=== PATIENT | male | born 1960 | race Caucasian/White ===

== ENCOUNTER 2024-08-20 06:51 | Day surgery (SDC) | payer MEDICARE, SELFPAY ==
--- OUTSIDE RECORDS SUMMARY | 2024-07-31 11:49 | XMS_ITS | Patient Health Record ---
Author Organization [facility] Address [address] [facility] [address] [place] [id number] Care Team Providers Care Solution Lead Name Role Phone Víctor Moreau MD Primary Care Provider Chace Ricks Jr, Pedrito Diaz Reason For Referral No Information Encounters Encounter Location Date Provider Diagnosis [facility] [address] [id number] 02/22/2024 Pedrito Ricks Jr Plan Of Treatment No Information Insurance Providers Payer Name Payer Address Payer Phone Subscriber Number Group Number Insured Name Patient Relationship to Insured Coverage Start Date Coverage End Date [employer] [address] [place] [phone] [id number] MOISES AKHTAR Self - patient is the insured
[2024-08-15 07:46] VITALS: BMI 38.4
--- NOTE | 2024-08-15 10:40 | HO.ANESPROP2 ---
Documented by User: Desirae Ackerman NP 08/16/24 10:33 HPI - Anesthesia Eval Consult details Narrative: 64yo M for Right Cataract Extraction IOL Insertion No previous cataract on record Pacer in situ (SSS, CHB) - 04/2024 interrogation on chart - generator changed 04/2024 Xarelto for afib CAD s/p stent PMFSH Past Medical History Medical History (Updated 08/15/24 @ 07:09 by Rocío Molina RN) Sleep apnea Allergic rhinitis Male erectile disorder Macular degeneration Knee pain HTN (hypertension) Hyperlipidemia Diabetes Cough Complete heart block Atypical chest pain Anxiety Acute sinusitis Acute pharyngitis Acute maxillary sinusitis Thoracic aortic aneurysm Paroxysmal atrial fibrillation Sick sinus syndrome Hx of cardiac pacemaker CAD (coronary artery disease) Surgical History Surgical History (Updated 08/15/24 @ 07:09 by Rocío Molina RN) Hx of hemorrhoidectomy History of coronary artery stent placement Social History Social History Are you a primary animal care attendant to a significant other at home: No Do you presently have visiting nurse or other home services: No Patient Tobacco Use Status: Never used Tobacco Use of substances other than those prescribed or required for medical reasons: No Have you been hit, kicked, punched, or otherwise hurt by someone within the past year? If so, by whom?: No Are you DNR?: No Advance Directives: No Advance Directives Information Provided: Yes Advance Directives on File: No Meds Allergies Allergy/AdvReac Type Severity Reaction Status Date / Time Penicillins Allergy Unknown Verified 08/15/24 07:10 Home Medications ?Medication ?Instructions ?Recorded ?Confirmed ?Last Taken ?Type albuterol sulfate 90 mcg/actuation 2 puff inhalation Q6H PRN 08/15/24 08/15/24 Unknown History aerosol inhaler Shortness Of Breath Or Wheezing aspirin 81 mg tablet,delayed 81 mg PO DAILY 08/15/24 08/15/24 Unknown History release atorvastatin 80 mg tablet 80 mg PO BEDTIME 08/15/24 08/15/24 Unknown History brimonidine 0.2 % eye drops 1 drp ophthalmic (eye) BID 08/15/24 08/15/24 Unknown History cyclobenzaprine 5 mg tablet 5 mg PO TID PRN Muscle Spasm 08/15/24 08/15/24 Unknown History dronedarone 400 mg tablet (Multaq) 400 mg PO BID 08/15/24 08/15/24 Unknown History fluticasone 250 mcg-salmeterol 50 1 ea inhalation BID 08/15/24 08/15/24 Unknown History mcg/dose blistr powdr for inhalation (Wixela Inhub) fluticasone propionate 50 2 spray intranasal DAILY 08/15/24 08/15/24 Unknown History mcg/actuation nasal spray,suspension furosemide 20 mg tablet 20 mg PO DAILY PRN Weight Gain 08/15/24 08/15/24 Unknown History lisinopril 5 mg tablet 5 mg PO QAM 08/15/24 08/15/24 Unknown History metformin 500 mg tablet,extended 1,000 mg PO QPM 08/15/24 08/15/24 Unknown History release 24 hr metformin 500 mg tablet,extended 500 mg PO QAM 08/15/24 08/15/24 Unknown History release 24 hr methocarbamol 500 mg tablet 500 mg PO BEDTIME PRN muscle spasm 08/15/24 08/15/24 Unknown History multivitamin 1 tab PO DAILY 08/15/24 08/15/24 Unknown History pantoprazole 40 mg tablet,delayed 40 mg PO DAILY 08/15/24 08/15/24 Unknown History release rivaroxaban 20 mg tablet (Xarelto) 20 mg PO DAILY 08/15/24 08/15/24 Unknown History timolol maleate 0.5 % eye drops 1 drp ophthalmic-Right QAM 08/15/24 08/15/24 Unknown History tiotropium bromide 2.5 2 puff inhalation DAILY 08/15/24 08/15/24 Unknown History mcg/actuation mist for inhalation (Spiriva Respimat) Exam Height,Weight and Vital Signs: Height 5 ft 9 in Weight 117.9 kg Narrative Narrative: EKG 04/2024 Vpaced rhythm ECHO 03/2024 Assessment and Plan Assessment Anesthesia Assessment: Chart Reviewed Documented by User: Tammy Morin MD 08/20/24 07:18 [facility] Past Medical History Medical History (Updated 08/15/24 @ 07:09 by Rocío Molina RN) Sleep apnea Allergic rhinitis Male erectile disorder Macular degeneration Knee pain HTN (hypertension) Hyperlipidemia Diabetes Cough Complete heart block Atypical chest pain Anxiety Acute sinusitis Acute pharyngitis Acute maxillary sinusitis Thoracic aortic aneurysm Paroxysmal atrial fibrillation Sick sinus syndrome Hx of cardiac pacemaker CAD (coronary artery disease) Family History Family history of problems with anesthesia: No Surgical History Surgical History (Updated 08/15/24 @ 07:09 by Rocío Molina RN) Hx of hemorrhoidectomy History of coronary artery stent placement History of Problems with Anesthesia: No Social History Social History Are you a primary animal care attendant to a significant other at home: No Do you presently have visiting nurse or other home services: No Patient Tobacco Use Status: Never used Tobacco Use of substances other than those prescribed or required for medical reasons: No Have you been hit, kicked, punched, or otherwise hurt by someone within the past year? If so, by whom?: No Are you DNR?: No Advance Directives: No Advance Directives Information Provided: Yes Advance Directives on File: No Meds Allergies Allergy/AdvReac Type Severity Reaction Status Date / Time Penicillins Allergy Unknown Verified 08/15/24 07:10 Home Medications ?Medication ?Instructions ?Recorded ?Confirmed ?Last Taken ?Type albuterol sulfate 90 mcg/actuation 2 puff inhalation Q6H PRN 08/15/24 08/15/24 Unknown History aerosol inhaler Shortness Of Breath Or Wheezing aspirin 81 mg tablet,delayed 81 mg PO DAILY 08/15/24 08/15/24 Unknown History release atorvastatin 80 mg tablet 80 mg PO BEDTIME 08/15/24 08/15/24 Unknown History brimonidine 0.2 % eye drops 1 drp ophthalmic (eye) BID 08/15/24 08/15/24 Unknown History cyclobenzaprine 5 mg tablet 5 mg PO TID PRN Muscle Spasm 08/15/24 08/15/24 Unknown History dronedarone 400 mg tablet (Multaq) 400 mg PO BID 08/15/24 08/15/24 Unknown History fluticasone 250 mcg-salmeterol 50 1 ea inhalation BID 08/15/24 08/15/24 Unknown History mcg/dose blistr powdr for inhalation ([place] Inhub) fluticasone propionate 50 2 spray intranasal DAILY 08/15/24 08/15/24 Unknown History mcg/actuation nasal spray,suspension furosemide 20 mg tablet 20 mg PO DAILY PRN Weight Gain 08/15/24 08/15/24 Unknown History lisinopril 5 mg tablet 5 mg PO QAM 08/15/24 08/15/24 Unknown History metformin 500 mg tablet,extended 1,000 mg PO QPM 08/15/24 08/15/24 Unknown History release 24 hr metformin 500 mg tablet,extended 500 mg PO QAM 08/15/24 08/15/24 Unknown History release 24 hr methocarbamol 500 mg tablet 500 mg PO BEDTIME PRN muscle spasm 08/15/24 08/15/24 Unknown History multivitamin 1 tab PO DAILY 08/15/24 08/15/24 Unknown History pantoprazole 40 mg tablet,delayed 40 mg PO DAILY 08/15/24 08/15/24 Unknown History release rivaroxaban 20 mg tablet (Xarelto) 20 mg PO DAILY 08/15/24 08/15/24 Unknown History timolol maleate 0.5 % eye drops 1 drp ophthalmic-Right QAM 08/15/24 08/15/24 Unknown History tiotropium bromide 2.5 2 puff inhalation DAILY 08/15/24 08/15/24 Unknown History mcg/actuation mist for inhalation (Spiriva Respimat) Exam Airway Mallampati Class: II TM Dist: >3cm Neck ROM: Full Heart: paced Lungs: cta Assessment and Plan Assessment Anesthesia Assessment: Anesthesia Plan Discussed Final Anesthetic Review Family History of Problems with Anesthesia: No History of Problems with Anesthesia: No NPO: Yes ASA Class: III Final Preanesthetic Review: No Changes in Pt Med Stat, Meds/Allgs Chart Reviewed and Consent Obtained/Reviewed Patient Risk: Low Procedure Risk: Low Anesthetic Plan Anesthetic Plan: MAC: Disposition: Standard PACU
[2024-08-20 07:13] VITALS: BP 134/89; PULSE 84; RESP 16; TEMP 36.2; O2SAT 95
[2024-08-20] MEDS: Tetracaine HCl/PF 0.5% Oph Sol 4 ML DROPS 1 DROP EYE-RIGHT (07:23)
[2024-08-20] MEDS: Cyclopentolate 1 % Ophth Sol 2 ML DRPBTL 1 DROP EYE-RIGHT ×3 (07:24→07:36)
[2024-08-20] MEDS: Tropicamide 1 % Ophth Sol 3 ML BTL 1 DROP EYE-RIGHT ×3 (07:25→07:37)
[2024-08-20] MEDS: Ketorolac Tromethamine 0.5% Op 5 ML DROPS 1 DROP EYE-RIGHT ×3 (07:27→07:38)
[2024-08-20] MEDS: Phenylephrine HCL 2.5% Oph SoL 2 ML BOTTLE 1 DROP EYE-RIGHT ×3 (07:28→07:39)
[2024-08-20] MEDS: Lactated Ringers 500 ML 50 ML IV (07:35)
[2024-08-20 07:37] LABS: Glucose, Whole Blood 172 mg/dL (60-115)
--- NOTE | 2024-08-20 08:14 | MHC.SHP ---
Pre-Procedural Eval Section A - 24 Hr Update-Section A only Date of Service: 08/20/24 The patient is an INPATIENT: No Changes since office visit: No Cold of Flu in the past 2 weeks, No New Medical Problems, No Changes in Medication and No Patient answered all questions The patient has been examined within 24 hours of the surgical procedure. The History & Physical has been completed within 30 days and I have reviewed it.: Yes Section B - Complete if H&P > 30 days Chief Complaint: Age-related nuclear cataract, right eye Allergies: Allergies Allergy/AdvReac Type Severity Reaction Status Date / Time Penicillins Allergy Unknown Verified 08/20/24 07:29 Plan Diagnosis/Plan: Unchanged I have reviewed the history and physical and performed a pertinent physical examination on my patient. No changes have occurred unless specified. Time Spent With Patient Time: Total time managing care of this patient today ____ minutes.
--- NOTE | 2024-08-20 08:15 | P.PCNO_ITS ---
Ophthalmology Procedure Procedure Date of Service: 08/20/24 Ophthalmology Viscoelastic: Healon Duet Dual Pack Pro Ophthalmology Lenses: IOL Acrysof MP - MA60AC (6.5) Procedure Notes: PREOPERATIVE DIAGNOSIS: Decreased visual acuity right eye secondary to cataract POSTOPERATIVE DIAGNOSIS: Same PROCEDURE: Right cataract extraction with intraocular lens insertion SURGEON: Jeff Sanchez M.D. ANESTHESIA: Topical/MAC ESTIMATED BLOOD LOSS: None COMPLICATIONS: None After obtaining informed consent, the patient was brought to the operating room suite and placed in the supine position. After adequate sedation per anesthesia, topical drops of Tetracaine were given to the right eye. The eye was then prepped and draped in the usual sterile fashion. The operating room microscope was then positioned over the operative eye and a lid speculum placed. A paracentesis was created. Viscoelastic was then instilled into the anterior chamber. A three plane incision was then created temporally, utilizing a 2.85 mm keratome. Capsulotomy forceps were then utilized to create a circular tear capsulotomy. Hydrodissection and hydrodelineation were carried out until adequate mobilization of the nucleus occurred. Phacoemulsification was then utilized to remove the dense central nuc leus followed by removal of the cortical material utilizing the automated aspiration irrigation unit. Viscoelastic was instilled into the posterior capsular bag followed by placement of a posterior chamber intraocular lens without difficulty. The residual Viscoelastic was then removed utilizing the automated IA machine. The wound was checked and found to be watertight. The patient tolerated the procedure well and the lid speculum was removed. Intracameral injection of Vigamox 0.1 mL followed by a subtenon injection of Kenalog-40 0.2 mL were administered. The patient will be seen in the a.m.
[2024-08-20 08:37] VITALS: BP 129/70; PULSE 71; RESP 16; TEMP 36.4; O2SAT 97
== END 2024-08-20 08:44 | disposition home or self-care (01) ==
PROVIDERS: PCP Internal Medicine; Visit Provider Ophthalmology
PROC: (CPT 66985; principal; 2024-08-20 09:00)
DX: H25.11 Age-related nuclear cataract, right eye (principal); H54.7 Unspecified visual loss; H40.1121 Primary open-angle glaucoma, left eye, mild stage; H35.3112 Nonexudative age-related macular degeneration, right eye, intermediate dry stage; I10 Essential (primary) hypertension; E11.9 Type 2 diabetes mellitus without complications; I25.10 Atherosclerotic heart disease of native coronary artery without angina pectoris; Z95.5 Presence of coronary angioplasty implant and graft; I48.0 Paroxysmal atrial fibrillation; Z95.0 Presence of cardiac pacemaker; Z79.01 Long term (current) use of anticoagulants; Z79.82 Long term (current) use of aspirin; Z79.84 Long term (current) use of oral hypoglycemic drugs; Z79.899 Other long term (current) drug therapy; Z88.0 Allergy status to penicillin
CPT/HCPCS: 66984; 82947; J2250; J3010; J3301; V2630

== ENCOUNTER 2024-09-03 06:35 | Day surgery (SDC) | payer MEDICARE, SELFPAY ==
[2024-08-15 07:56] VITALS: BMI 37.7
--- NOTE | 2024-08-31 09:56 | HO.ANESPROP2 ---
Documented by User: Desirae Ackerman NP 08/31/24 09:57 HPI - Anesthesia Eval Consult details Narrative: 64yo M for Left Cataract Extraction IOL Insertion Right eye 08/20/24: Fent 50, Midaz 2 Pacer in situ (SSS, CHB) - 04/2024 interrogation on chart - generator changed 04/2024 Xarelto for afib CAD s/p stent PMFSH Past Medical History Medical History Sleep apnea Allergic rhinitis Male erectile disorder Macular degeneration Knee pain HTN (hypertension) Hyperlipidemia Diabetes Cough Complete heart block Atypical chest pain Anxiety Acute sinusitis Acute pharyngitis Acute maxillary sinusitis Thoracic aortic aneurysm Paroxysmal atrial fibrillation Sick sinus syndrome Hx of cardiac pacemaker CAD (coronary artery disease) Family History Family history of problems with anesthesia: No Surgical History Surgical History Hx of hemorrhoidectomy History of coronary artery stent placement History of Problems with Anesthesia: No Social History Social History Are you a primary home health care physician to a significant other at home: No Do you presently have visiting nurse or other home services: No Patient Tobacco Use Status: Never used Tobacco Use of substances other than those prescribed or required for medical reasons: No Have you been hit, kicked, punched, or otherwise hurt by someone within the past year? If so, by whom?: No Are you DNR?: No Advance Directives: No Advance Directives Information Provided: Yes Advance Directives on File: No Meds Allergies Allergy/AdvReac Type Severity Reaction Status Date / Time Penicillins Allergy Unknown Verified 08/20/24 07:29 Active Medications: Current Medications Povidone Iodine (Povidone Iodine 5 % Ophth Soln 30 Ml Bottle) 1 appl EYE-LEFT PREOP PRN PRN Reason: Pre-Op Surgical Implant Prophy Home Medications ?Medication ?Instructions ?Recorded ?Confirmed ?Last Taken ?Type albuterol sulfate 90 mcg/actuation 2 puff inhalation Q6H PRN 08/15/24 08/15/24 Unknown History aerosol inhaler Shortness Of Breath Or Wheezing aspirin 81 mg tablet,delayed 81 mg PO DAILY 07/04/1008/15/24 09/03/24 History release atorvastatin 80 mg tablet 80 mg PO BEDTIME 08/15/24 08/15/24 Unknown History brimonidine 0.2 % eye drops 1 drp ophthalmic (eye) BID 08/15/24 08/15/24 Unknown History cyclobenzaprine 5 mg tablet 5 mg PO TID PRN Muscle Spasm 08/15/24 08/15/24 Unknown History dronedarone 400 mg tablet (Multaq) 400 mg PO BID 08/15/24 08/15/24 08/20/24 05:15 History fluticasone 250 mcg-salmeterol 50 1 ea inhalation BID 08/15/24 08/15/24 Unknown History mcg/dose blistr powdr for inhalation ([place] [employer]) fluticasone propionate 50 2 spray intranasal DAILY 08/15/24 08/15/24 Unknown History mcg/actuation nasal spray,suspension furosemide 20 mg tablet 20 mg PO DAILY PRN Weight Gain 08/15/24 08/15/24 Unknown History lisinopril 5 mg tablet 5 mg PO QAM 08/15/24 08/15/24 Unknown History metformin 500 mg tablet,extended 1,000 mg PO QPM 08/15/24 08/15/24 Unknown History release 24 hr metformin 500 mg tablet,extended 500 mg PO QAM 08/15/24 08/15/24 09/03/24 History release 24 hr methocarbamol 500 mg tablet 500 mg PO BEDTIME PRN muscle spasm 08/15/24 08/15/24 Unknown History multivitamin 1 tab PO DAILY 08/15/24 08/15/24 Unknown History pantoprazole 40 mg tablet,delayed 40 mg PO DAILY 08/15/24 08/15/24 09/03/24 History release rivaroxaban 20 mg tablet (Xarelto) 20 mg PO DAILY 08/15/24 08/15/24 Unknown History timolol maleate 0.5 % eye drops 1 drp ophthalmic-Right QAM 08/15/24 08/15/24 Unknown History tiotropium bromide 2.5 2 puff inhalation DAILY 08/15/24 08/15/24 Unknown History mcg/actuation mist for inhalation (Spiriva Respimat) Exam Height,Weight and Vital Signs: Height 5 ft 9.61 in Weight 117.9 kg Narrative Narrative: EKG 04/2024 Vpaced rhythm ECHO 03/2024 Assessment and Plan Assessment Anesthesia Assessment: Chart Reviewed Final Anesthetic Review Family History of Problems with Anesthesia: No History of Problems with Anesthesia: No Documented by User: Brenda Simms MD 09/03/24 08:25 [facility] Past Medical History Medical History Sleep apnea Allergic rhinitis Male erectile disorder Macular degeneration Knee pain HTN (hypertension) Hyperlipidemia Diabetes Cough Complete heart block Atypical chest pain Anxiety Acute sinusitis Acute pharyngitis Acute maxillary sinusitis Thoracic aortic aneurysm Paroxysmal atrial fibrillation Sick sinus syndrome Hx of cardiac pacemaker CAD (coronary artery disease) Surgical History Surgical History Hx of hemorrhoidectomy History of coronary artery stent placement Social History Social History Are you a primary home health care physician to a significant other at home: No Do you presently have visiting nurse or other home services: No Patient Tobacco Use Status: Never used Tobacco Use of substances other than those prescribed or required for medical reasons: No Have you been hit, kicked, punched, or otherwise hurt by someone within the past year? If so, by whom?: No Are you DNR?: No Advance Directives: No Advance Directives Information Provided: Yes Advance Directives on File: No Meds Allergies Allergy/AdvReac Type Severity Reaction Status Date / Time Penicillins Allergy Unknown Verified 08/20/24 07:29 Home Medications ?Medication ?Instructions ?Recorded ?Confirmed ?Last Taken ?Type albuterol sulfate 90 mcg/actuation 2 puff inhalation Q6H PRN 08/15/24 08/15/24 Unknown History aerosol inhaler Shortness Of Breath Or Wheezing aspirin 81 mg tablet,delayed 81 mg PO DAILY 08/15/24 08/15/24 09/03/24 History release atorvastatin 80 mg tablet 80 mg PO BEDTIME 08/15/24 08/15/24 Unknown History brimonidine 0.2 % eye drops 1 drp ophthalmic (eye) BID 08/15/24 08/15/24 Unknown History cyclobenzaprine 5 mg tablet 5 mg PO TID PRN Muscle Spasm 08/15/24 08/15/24 Unknown History dronedarone 400 mg tablet (Multaq) 400 mg PO BID 08/15/24 08/15/24 08/20/24 05:15 History fluticasone 250 mcg-salmeterol 50 1 ea inhalation BID 08/15/24 08/15/24 Unknown History mcg/dose blistr powdr for inhalation (Wixela Inhub) fluticasone propionate 50 2 spray intranasal DAILY 08/15/24 08/15/24 Unknown History mcg/actuation nasal spray,suspension furosemide 20 mg tablet 20 mg PO DAILY PRN Weight Gain 08/15/24 08/15/24 Unknown History lisinopril 5 mg tablet 5 mg PO QAM 08/15/24 08/15/24 Unknown History metformin 500 mg tablet,extended 1,000 mg PO QPM 08/15/24 08/15/24 Unknown History release 24 hr metformin 500 mg tablet,extended 500 mg PO QAM 08/15/24 08/15/24 09/03/24 History release 24 hr methocarbamol 500 mg tablet 500 mg PO BEDTIME PRN muscle spasm 08/15/24 08/15/24 Unknown History multivitamin 1 tab PO DAILY 08/15/24 08/15/24 Unknown History pantoprazole 40 mg tablet,delayed 40 mg PO DAILY 08/15/24 08/15/24 09/03/24 History release rivaroxaban 20 mg tablet (Xarelto) 20 mg PO DAILY 08/15/24 08/15/24 Unknown History timolol maleate 0.5 % eye drops 1 drp ophthalmic-Right QAM 08/15/24 08/15/24 Unknown History tiotropium bromide 2.5 2 puff inhalation DAILY 08/15/24 08/15/24 Unknown History mcg/actuation mist for inhalation (Spiriva Respimat) Exam Airway TM Dist: >3cm Neck ROM: Full Heart: rrr Lungs: cta Assessment and Plan Assessment Anesthesia Assessment: Anesthesia Plan Discussed Final Anesthetic Review NPO: Yes ASA Class: III Final Preanesthetic Review: No Changes in Pt Med Stat, Meds/Allgs Chart Reviewed, Consent Obtained/Reviewed and Anes Risks/Benef Reviewed Patient Risk: Intermediate Procedure Risk: Low Anesthetic Plan Anesthetic Plan: MAC: Disposition: Standard PACU
[2024-09-03 06:58] VITALS: BP 109/88; PULSE 94; RESP 16; TEMP 36.6; O2SAT 96
[2024-09-03] MEDS: Tetracaine HCl/PF 0.5% Oph Sol 4 ML DROPS 1 DROP EYE-LEFT (07:03)
[2024-09-03] MEDS: Cyclopentolate 1 % Ophth Sol 2 ML DRPBTL 1 DROP EYE-LEFT ×3 (07:04→07:11)
[2024-09-03] MEDS: Tropicamide 1 % Ophth Sol 3 ML BTL 1 DROP EYE-LEFT ×3 (07:05→07:12)
[2024-09-03] MEDS: Ketorolac Tromethamine 0.5% Op 5 ML DROPS 1 DROP EYE-LEFT ×3 (07:05→07:12)
[2024-09-03] MEDS: Phenylephrine HCL 2.5% Oph SoL 2 ML BOTTLE 1 DROP EYE-LEFT ×3 (07:06→07:13)
[2024-09-03 07:19] LABS: Glucose, Whole Blood 151 mg/dL (60-115)
[2024-09-03] MEDS: Lactated Ringers 500 ML 50 ML IV (07:20)
--- NOTE | 2024-09-03 08:22 | MHC.SHP ---
Pre-Procedural Eval Section A - 24 Hr Update-Section A only Date of Service: 09/03/24 The patient is an INPATIENT: No Changes since office visit: No Cold of Flu in the past 2 weeks, No New Medical Problems, No Changes in Medication and No Patient answered all questions The patient has been examined within 24 hours of the surgical procedure. The History & Physical has been completed within 30 days and I have reviewed it.: Yes Section B - Complete if H&P > 30 days Chief Complaint: Age-related nuclear cataract, left eye Allergies: Allergies Allergy/AdvReac Type Severity Reaction Status Date / Time Penicillins Allergy Unknown Verified 08/20/24 07:29 Plan Diagnosis/Plan: Unchanged I have reviewed the history and physical and performed a pertinent physical examination on my patient. No changes have occurred unless specified. Time Spent With Patient Time: Total time managing care of this patient today ____ minutes.
--- NOTE | 2024-09-03 08:22 | HO.PNOPHT ---
Ophthalmology Procedure Procedure Date of Service: 09/03/24 Ophthalmology Viscoelastic: Healon Duet Dual Pack Pro Ophthalmology Lenses: IOL Acrysof MP - MA60AC (11.5) Procedure Notes: PREOPERATIVE DIAGNOSIS: Decreased visual acuity left eye secondary to cataract POSTOPERATIVE DIAGNOSIS: Same PROCEDURE: Left cataract extraction with intraocular lens insertion SURGEON: Jeff Sanchez M.D. ANESTHESIA: Topical/MAC ESTIMATED BLOOD LOSS: None COMPLICATIONS: None After obtaining informed consent, the patient was brought to the operation room suite and placed in the supine position. After adequate sedation per anesthesia, topical drops of Tetracaine were given to the left eye. The eye was then prepped and draped in the usual sterile fashion. The operating room microscope was then positioned over the operative eye and a lid speculum placed. A paracentesis was created. Viscoelastic was then instilled into the anterior chamber. A three plane incision was then created temporally, utilizing a 2.85 mm keratome. Capsulotomy forceps were then utilized to create a circular tear capsulotomy. Hydrodissection and hydrodelineation were carried out until adequate mobilization of the nucleus occurred. Phacoemulsification was then utilized to remove the dense central nucleus followed by removal of the cortical material utilizing the automated aspiration irrigation unit. Viscoat elastic was instilled into the posterior capsular bag followed by placement of a posterior chamber intraocular lens without difficulty. The residual Viscoat elastic was then removed utilizing the automated IA machine. The wound was check and found to be watertight. The patient tolerated the procedure well and the lid speculum was removed. Intracameral injection of Vigamox 0.1 mL followed by a subtenon injection of Kenalog-40 0.2 mL were administered. The patient will be seen in the a.m.
[2024-09-03 08:48] VITALS: BP 119/80; PULSE 80; RESP 16; TEMP 36.3; O2SAT 95
== END 2024-09-03 08:59 | disposition home or self-care (01) ==
PROVIDERS: PCP Internal Medicine; Visit Provider Ophthalmology
PROC: (CPT 66985; principal; 2024-09-03 08:30)
DX: H25.12 Age-related nuclear cataract, left eye (principal); H54.7 Unspecified visual loss; H40.1121 Primary open-angle glaucoma, left eye, mild stage; I10 Essential (primary) hypertension; E11.9 Type 2 diabetes mellitus without complications; H40.9 Unspecified glaucoma; I25.10 Atherosclerotic heart disease of native coronary artery without angina pectoris; Z95.5 Presence of coronary angioplasty implant and graft; E78.5 Hyperlipidemia, unspecified; E61.1 Iron deficiency; G47.33 Obstructive sleep apnea (adult) (pediatric); Z79.01 Long term (current) use of anticoagulants; Z79.84 Long term (current) use of oral hypoglycemic drugs; Z79.82 Long term (current) use of aspirin; Z79.899 Other long term (current) drug therapy; Z88.0 Allergy status to penicillin
CPT/HCPCS: 66984; 82947; J2250; J3010; J3301; V2630

== ENCOUNTER 2025-01-24 08:52 | Outpatient (REF) | payer MEDICARE, SELFPAY ==
--- NOTE | ~2025-01-24 | XR_ITS ---
EXAMINATION: XR CHEST CLINICAL INFORMATION: OTHER PNEUMONIA UNSPECIFIED ORGANISM J18.8 COMPARISON: 03/01/2013 chest x-ray report. Images are not retrievable/archived. TECHNIQUE: 2 views of the chest were obtained. FINDINGS: Left-sided dual-lead pacer device is in place with leads extending of the right atrium and right ventricle. The cardiac, hilar, and mediastinal contours are normal. Mild aortic mural calcification. The lungs are clear bilaterally. There is no pneumothorax or pleural effusion. There is no focal osseous or soft tissue abnormality. There are mild to moderate degenerative spinal changes. XR/XR chest 2V IMPRESSION: No active pulmonary disease. Electronically signed by: Arnoldo Gunn MD 01/24/2025 09:42 AM [facility]
== END 2025-01-24 08:53 | disposition home or self-care (01) ==
LOC: HO.HMGCX 08:52
PROVIDERS: PCP Internal Medicine; Visit Provider Internal Medicine
DX: J18.8 Other pneumonia, unspecified organism (principal)
CPT/HCPCS: 71046

== ENCOUNTER → 2025-01-24 09:30 | Outpatient (BNV) | payer MEDICARE, SELFPAY | PROVIDERS: PCP Internal Medicine; Visit Provider Radiology Diagnostic Radiology | DX: J18.8 Other pneumonia, unspecified organism (principal) | CPT/HCPCS: 71046 ==